=== PATIENT | male | born 1955 | race Caucasian/White ===

== ENCOUNTER 2016-04-17 18:38 | Emergency (ER) | payer OTHER ==
[~2016-04-17] VITALS: Ht 177.8 cm; Wt 65.8 kg
[2016-04-17] MEDS ORDERED: NS IV 1000 ML 1,000 ML IV ONE (18:52)
[2016-04-17] MEDS ORDERED: NS IV 1000 ML 1,000 ML ONE (18:54)
--- NOTE | 2016-04-17 19:00 | ED Syncope ---
General Stated Complaint: R SIDE FACE LAC Source of Information: Patient Exam Limitations: No Limitations (RIA PIERRE MD) History of Present Illness Time Seen by Provider: 18:45 Initial Comments Here with report of syncopal episode tonight. States he was cooking dinner and stood up quickly to stir his meat on the stove when he got dizzy and passed out. He hit his head on a metal stool and has a 5 cm laceration above the right eye involving the brow and upper eyelid. States he had a similar episode 10 years ago with standing up quickly. Denies nausea or vomiting. Has had some epigastric abdominal pain and states that has been related to stress at work. Apparently his job is cutting hours and he is fretting about that. States he feels like he has to have a bowel movement but can't. States that he has been more gassy today. Timing/Prior Episodes: Remote History, Single Episode Today Symptoms Prior to Episode: Injury, Lightheadedness Loss of Consciousness: Brief (Seconds) Current Symptoms: No Chest Pain, Dizziness Lightheadedness Pale Weakness ( RIA PIERRE MD) Allergies and Home Medications Allergies Coded Allergies: No Known Drug Allergies (Unverified , 04/17/16) Home Medications No Active Prescriptions or Reported Meds Constitutional: see HPINo chills, No fever EENTM: see HPI Respiratory: no symptoms reportedNo short of breath, No wheezing Cardiovascular: see HPINo edema, syncope Gastrointestinal: see HPI abdominal painNo nausea, No vomiting Genitourinary: no symptoms reported Musculoskeletal: no symptoms reported Skin: see HPI lesions Psychiatric/Neurological: See HPI (RIA PIERRE MD) All Other Systems Reviewed Negative Unless Noted: Yes (RIA PIERRE MD) Past Rcpkoga-Qocdsn-Dilgjj Hx Patient Social History Alcohol Use: Denies Use Recreational Drug Use: No Smoking Status: Current Everyday Smoker Type Used: Cigarettes Recent Foreign Travel: No Contact w/Someone Who Travel: No (RIA PIERRE MD) Surgeries HX Surgeries: No (RIA PIERRE MD) Respiratory Hx Respiratory Disorders: No (RIA PIERRE MD) Cardiovascular Hx Cardiac Disorders: No (RIA PIERRE MD) Neurological Hx Neurological Disorders: No (RIA PIERRE MD) Genitourinary Hx Genitourinary Disorders: No (RIA PIERRE MD) Gastrointestinal Hx Gastrointestinal Disorders: No (RIA PIERRE MD) Musculoskeletal Hx Musculoskeletal Disorders: Yes Musculoskeletal Disorders: Amputee (finger) (RIA PIERRE MD) Endocrine Hx Endocrine Disorders: No (RIA PIERRE MD) HEENT HX ENT Disorders: No (RIA PIERRE MD) Psychosocial Hx Psychiatric Problems: No (RIA PIERRE MD) Reviewed Nursing Assessment Reviewed/Agree w Nursing PMH: Yes (RIA PIERRE MD) Family Medical History Significant Family History: No Pertinent Family Hx (RIA PIERRE MD) Physical Exam Vital Signs Vital Sign - Last 12Hours 04/17/16 18:50 Temp 96.3 Pulse 83 Resp 18 B/P 100/67 Pulse Ox 100 (CARLOS HENRY APRN) Vital Signs Capillary Refill : (RIA PIERRE MD) General Appearance: No Apparent Distress WD/WN HEENT: PERRL/EOMI Pharynx Normal Other (right brow and upper eyelid laceration ) Neck: Full Range of Motion Normal Inspection Non Tender Cardiovascular: Regular Rate, Rhythm No Murmur Respiratory: Lungs Clear Normal Breath Sounds Gastrointestinal: Non Tender Soft Back: Normal Inspection No CVA Tenderness No Vertebral Tenderness Extremities: Non Tender No Calf Tenderness Neurologic/Psychiatric: Alert Oriented x3 No Motor/Sensory Deficits Normal Mood/Affect Cranial Nerves: Normal Hearing, Normal Speech, PERRL Coordination/Gait: Normal Gait Motor/Sensory: No Motor Deficit, No Sensory Deficit Skin: Warm/Dry Pallor Lymphatic: No Adenopathy (RIA PIERRE MD) Laceration Repair : Wound Location: Face Wound Length (cm): 5 Wound's Depth, Shape: sub Q Wound Explored: clean Irrigated w/ Saline (ccs): 110 Betadine Prep?: Yes Anesthesia: Lidocaine w/ Epi Volume Anesthetic (ccs): 3 Suture: Ethlion Suture Size: 5-0 Number of Sutures: 2 Layer Closure?: 1 Number Deep Layer Sutures: 0 Progress Area anesthetized with lidocaine with epinephrine totaling 3ml. Area scrubbed with chlorhexidine/saline solution. One simple interrupted suture was placed then one long continuous suture was placed. (CARLOS HENRY APRN) Progress/Results/Core Measures Results/Orders Lab Results Laboratory Tests Test 04/17/16 18:50 04/17/16 18:51 Range/Units Alanine Aminotransferase (ALT/SGPT) 13 0-55 U/L Albumin 4.3 3.2-4.5 G/DL Alkaline Phosphatase 84 40-136 U/L Anion Gap 15 H 5-14 MMOL/L Aspartate Amino Transf (AST/SGOT) 15 5-34 U/L BUN/Creatinine Ratio 15 Basophils # (Auto) 0.1 0.0-0.1 10^3/uL Basophils (%) (Auto) 1 0-10 % Blood Urea Nitrogen 15 7-18 MG/DL Calcium Level 9.2 8.5-10.1 MG/DL Carbon Dioxide Level 19 L 21-32 MMOL/L Chloride Level 103 98-107 MMOL/L Creatinine 1.00 0.60-1.30 MG/DL Eosinophils # (Auto) 0.3 0.0-0.3 10^3/uL Eosinophils (%) (Auto) 2 0-10 % Estimat Glomerular Filtration Rate > 60 Glucose Level 143 H 70-105 MG/DL Hematocrit 41 40-54 % Hemoglobin 14.7 13.3-17.7 G/DL Lymphocytes # (Auto) 3.0 1.0-4.0 X 10^3 Lymphocytes (%) (Auto) 27 12-44 % Mean Corpuscular Hemoglobin 31 25-34 PG Mean Corpuscular Hemoglobin Concent 36 32-36 G/DL Mean Corpuscular Volume 85 80-99 FL Mean Platelet Volume 10.6 H 7.4-10.4 FL Monocytes # (Auto) 1.1 H 0.0-1.0 X 10^3 Monocytes (%) (Auto) 10 0-12 % Neutrophils # (Auto) 6.7 1.8-7.8 X 10^3 Neutrophils (%) (Auto) 61 42-75 % Platelet Count 219 130-400 10^3/uL Potassium Level 3.4 L 3.6-5.0 MMOL/L Red Blood Count 4.82 4.35-5.85 10^6/uL Red Cell Distribution Width 13.6 10.0-14.5 % Sodium Level 137 135-145 MMOL/L Total Bilirubin 0.6 0.1-1.0 MG/DL Total Protein 6.6 6.4-8.2 G/DL Troponin I < 0.30 <0.30 NG/ML White Blood Count 11.1 H 4.3-11.0 10^3/uL Glucometer 145 H 70-110 MG/DL (CARLOS HENRY APRN) My Orders Orders-CARLOS HENRY APRN Lidocaine/Epi 1% 1:100,000 (Xylocaine /E (04/17/16 19:15) (CARLOS HENRY APRN) Medications Given in ED Current Medications Medications Dose Ordered Sig/Luiz Route Start Time Stop Time Status Last Admin Dose Admin Sodium Chloride 1,000 ml @ 0 mls/hr Q0M ONCE IV 04/17/16 18:52 04/17/16 18:54 DC 04/17/16 18:56 1,000 MLS/HR (CARLOS HENRY APRN) Vital Signs/I&O Vital Sign - Last 12Hours 04/17/16 18:50 Temp 96.3 Pulse 83 Resp 18 B/P 100/67 Pulse Ox 100 (CARLOS HENRY APRN) Progress Note : Progress Note Seen and evaluated. IV, labs, EKG and chest x-ray ordered. CT head and face ordered. Monitor patient. Tetanus updated. 2100: Wound closure by Carlos Henry APRN. No significant findings other than COPD. I did discuss with the patient about smoking cessation and COPD findings on chest x-ray. Also instructed him to follow-up with and seek primary care physician. Patient stated he will. Discharged home with return precautions. Patient verbalize understanding instructions and agreement with plan. (RIA PIERRE MD) ECG Initial ECG Impression Date: Apr 17, 2016 Initial ECG Impression Time: 19:04 Initial ECG Rate: 69 Initial ECG Rhythm: Normal Sinus Initial ECG Impression: Normal Initial ECG Comparisson: No Previous ECG Available Comment Sinus rhythm with normal axis. No numbness of ST elevation MS. No previous available for comparison. Interpreted by me. (RIA PIERRE MD) Diagnostic Imaging Diagonstic Imaging: CT Plain Films/CT/US/NM/MRI: abdomen, pelvis, head Comments NAME: FREDRICK LEIVA MED REC#: [id number] PT STATUS: REG ER : 1955 PHYSICIAN: RIA PIERRE MD ADMIT DATE: 04/17/16/ER Signed Date of Exam: 04/17/16 CT HEAD/MAXILLOFACIAL WO INDICATION: Fainted today, laceration above the right eye. COMPARISON STUDIES: None. FINDINGS: Noncontrast CT scan of the head demonstrates no mass effect, midline shift, hemorrhage or extra-axial fluid collections. Weathers-white matter differentiation is normal. The ventricles, cortical sulci and basilar cisterns appear normal. No foreign bodies are identified. No fractures are evident. No fluid is seen in the visualized portions of the paranasal sinuses and mastoid air cells. Noncontrast CT scan of the facial bones demonstrates no evidence of a fracture. The temporomandibular joints are normally seated. No fluid is seen in the paranasal sinuses. Nasal septum is deviated to the left. A small mucus retention cyst is seen in the right maxillary sinus. IMPRESSION: There are no acute findings to the head or facial bones. Dictated by: Dictated on workstation # [id number] Dict: 04/17/162033 Trans: 04/17/162040 [facility] [id number] Interpreted by: MERLE FIORE MD Electronically signed by:MERLE FIORE MD 04/17/162042 Diagonstic Imaging: Xray Plain Films/CT/US/NM/MRI: chest Comments NAME: FREDRICK LEIVA [employer] REC#: [id number] PT STATUS: REG ER : 1955 PHYSICIAN: RIA PIERRE MD ADMIT DATE: 04/17/16/ER Signed Date of Exam: 04/17/16 CHEST PA/LAT (2 VIEW) INDICATION: Syncope today FINDINGS: Frontal and lateral views of the chest demonstrate COPD changes. The heart size and vascularity are normal. There are no effusions. IMPRESSION: COPD. Dictated by: Dictated on workstation # [id number] Dict: 04/17/162027 Trans: 04/17/162040 [facility] [id number] Interpreted by: MERLE FIORE MD Electronically signed by:MERLE FIORE MD 04/17/162042 (RIA PIERRE MD) Departure Impression Impression: Primary Impression: Syncope Qualified Code: R55 - Syncope and collapse Additional Impression: Facial laceration Qualified Code: S01.81XA - Laceration without foreign body of other part of head, initial encounter Disposition: 01 HOME, SELF-CARE Condition: Improved Departure-Patient Inst. Decision time for Depature: 21:08 (RIA PIERRE MD) Referrals: NO,LOCAL PHYSICIAN (PCP/Family) Primary Care Physician Patient Instructions: Laceration Repair With Stitches (DC), Syncope (Fainting) (DC) Add. Discharge Instructions: You May take ibuprofen or Tylenol as needed for fever or pain control. Drink plenty of fluids. It is important that you transition from lying or sitting to standing slowly to prevent dizziness or passing out. If you feel dizzy when standing, it is important that you sit back down or lay down and get your feet up quickly as this will prevent passing out. Follow-up with your doctor for recheck and further evaluation. Seek primary care physician as discussed. You should consider stopping smoking as you have changes noted on your chest x-ray indicating chronic lung injury from smoking. Return for worse pain, fever, vomiting, weakness, breathing problems or other concerns as needed. Use antibiotic ointment over the wound once or twice daily for the next 3 or 4 days and then as needed. You may cover the wound with a dressing as needed to protect wound. You may use ice packs to the affected area as needed to help the swelling or pain. Stitches out in 5-6 days. Scripts No Active Prescriptions or Reported Meds RIA PIERRE MD Apr 17, 2016 19:00 CARLOS HENRY APRN Apr 17, 2016 20:24
[2016-04-17] MEDS ORDERED: TETANUS,DIPTH,PERTUSS P/F (BOOSTRIX) 0.5 ML VIAL IM STA (19:01)
[2016-04-17 19:02] LABS: BASOPHILS # (AUTO) 0.1 10^3/uL (0.0-0.1); BASOPHILS % (AUTO) 1 % (0-10); EOSINOPHILS # (AUTO) 0.3 10^3/uL (0.0-0.3); EOSINOPHILS % (AUTO) 2 % (0-10); LYMPHOCYTES % (AUTO) 27 % (12-44); MEAN CORPUSCULAR HEMOGLOBIN 31 PG (25-34); MEAN CORPUSCULAR HGB CONC 36 G/DL (32-36); MEAN CORPUSCULAR VOLUME 85 FL (80-99); MEAN PLATELET VOLUME 10.6 FL (7.4-10.4); MONOCYTES # (AUTO) 1.1 X 10^3 (0.0-1.0); MONOCYTES % (AUTO) 10 % (0-12); NEUTROPHILS # (AUTO) 6.7 X 10^3 (1.8-7.8); NEUTROPHILS % (AUTO) 61 % (42-75); PLATELET COUNT 219 10^3/uL (130-400); RED BLOOD COUNT 4.82 10^6/uL (4.35-5.85); RED CELL DISTRIBUTION WIDTH 13.6 % (10.0-14.5); WHITE BLOOD COUNT 11.1 10^3/uL (4.3-11.0)
[2016-04-17] MEDS ORDERED: LIDOCAINE/EPI 1%-1:100,000 (XYLOCAINE) 20ML INJ ONE (19:15)
[2016-04-17 19:20] LABS: ALANINE AMINOTRANSFERASE 13 U/L (0-55); ALBUMIN 4.3 G/DL (3.2-4.5); ANION GAP 15 MMOL/L (5-14); ASPARTATE AMINO TRANSFERASE 15 U/L (5-34); BILIRUBIN,TOTAL 0.6 MG/DL (0.1-1.0); BLOOD UREA NITROGEN 15 MG/DL (7-18); BUN/CREATININE RATIO 15; CALCIUM 9.2 MG/DL (8.5-10.1); CARBON DIOXIDE 19 MMOL/L (21-32); CHLORIDE 103 MMOL/L (98-107); GFR ESTIMATED > 60; GLUCOSE 143 MG/DL (70-105); POTASSIUM 3.4 MMOL/L (3.6-5.0); SODIUM 137 MMOL/L (135-145); TOTAL PROTEIN 6.6 G/DL (6.4-8.2)
[2016-04-17 19:26] LABS: TROPONIN I < 0.30 NG/ML (<0.30)
--- NOTE | 2016-04-17 20:30 | Diagnostic Imaging Report ---
INDICATION: Syncope today FINDINGS: Frontal and lateral views of the chest demonstrate COPD changes. The heart size and vascularity are normal. There are no effusions. IMPRESSION: COPD. Dictated by: Dictated on workstation # [id number]
--- NOTE | 2016-04-17 20:39 | Diagnostic Imaging Report ---
INDICATION: Fainted today, laceration above the right eye. COMPARISON STUDIES: None. FINDINGS: Noncontrast CT scan of the head demonstrates no mass effect, midline shift, hemorrhage or extra-axial fluid collections. Weathers-white matter differentiation is normal. The ventricles, cortical sulci and basilar cisterns appear normal. No foreign bodies are identified. No fractures are evident. No fluid is seen in the visualized portions of the paranasal sinuses and mastoid air cells. Noncontrast CT scan of the facial bones demonstrates no evidence of a fracture. The temporomandibular joints are normally seated. No fluid is seen in the paranasal sinuses. Nasal septum is deviated to the left. A small mucus retention cyst is seen in the right maxillary sinus. IMPRESSION: There are no acute findings to the head or facial bones. Dictated by: Dictated on workstation # [id number]
[2016-04-17 21:47] VITALS: BP 107/71
== END 2016-04-17 21:12 | disposition home or self-care (01) ==
LOC: EDUNIT# 18:38 → ER 18:39
DX: S01.111A Laceration without foreign body of right eyelid and periocular area, initial encounter (principal); Z23 Encounter for immunization; R55 Syncope and collapse; J44.9 Chronic obstructive pulmonary disease, unspecified; F17.210 Nicotine dependence, cigarettes, uncomplicated; W18.09XA Striking against other object with subsequent fall, initial encounter; Y92.010 Kitchen of single-family (private) house as the place of occurrence of the external cause; Y99.8 Other external cause status
CPT/HCPCS: 36415; 70450; 70486; 71020; 80053; 82962; 84484; 85025; 90471; 90715; 93005; 96360

== ENCOUNTER 2016-04-23 09:22 | Emergency (ER) | payer OTHER ==
[~2016-04-23] VITALS: Ht 177.8 cm; Wt 65.8 kg
--- OUTSIDE RECORDS SUMMARY | 2016-04-23 09:30 | XMS REPORT | Continuity of Care Document ---
Author Author [facility] Organization [facility] Address Unknown Phone Unavailable Care Team Providers Care Photo Print Specialist Name Role Phone NO, LOCAL PHYSICIAN PCP Unavailable Insurance Providers Payer Name Policy Number Subscriber Name Relationship Unknown Advance Directives Directive Response Recorded Date/Time Advance Directives Yes 04/17/16 6:50pm Resuscitation Status Full Code 04/17/16 6:50pm Chief Complaint and Reason for Visit Chief Complaint Dizziness/Syncope Reason for Visit Syncope Facial laceration Problems Active Problems Medical Problem Onset Date Status Facial laceration Unknown Acute Syncope Unknown Acute Medications No known medications. Social History Social History Problem Response Recorded Date/Time Alcohol Use Denies Use 04/17/2016 7:00pm Recreational Drug Use No 04/17/2016 7:00pm Recent Foreign Travel No 04/17/2016 6:50pm Recent Infectious Disease Exposure No 04/17/2016 6:50pm Hospitalization with Isolation Denies 04/17/2016 6:50pm Smoking Status Current Everyday Smoker 04/17/2016 7:00pm Type Used Cigarettes 04/17/2016 7:00pm Hospitalization with Isolation Denies 04/17/2016 6:50pm Query Response Start Date Stop Date Smoking Status Current Everyday Smoker Hospital Discharge Instructions No hospital discharge instructions. Plan of Care Discharge Date 04/17/16 9:12pm Disposition 01 HOME, SELF-CARE Condition at Discharge Improved Instructions/Education Provided Laceration Repair With Stitches (DC) Syncope (Fainting) (DC) Prescriptions See Medication Section Referrals NO,LOCAL PHYSICIAN - Primary Care Physician Additional Instructions/Education You May take ibuprofen or Tylenol as needed for fever or pain control. Drink plenty of fluids. It is important that you transition from lying or sitting to standing slowly to prevent dizziness or passing out. If you feel dizzy when standing, it is important that you sit back down or lay down and get your feet up quickly as this will prevent passing out. Follow-up with your doctor for recheck and further evaluation. Seek primary care physician as discussed. You should consider stopping smoking as you have changes noted on your chest x-ray indicating chronic lung injury from smoking. Return for worse pain, fever, vomiting, weakness, breathing problems or other concerns as needed. Use antibiotic ointment over the wound once or twice daily for the next 3 or 4 days and then as needed. You may cover the wound with a dressing as needed to protect wound. You may use ice packs to the affected area as needed to help the swelling or pain. Stitches out in 5-6 days. Functional Status Query Response Date Recorded Patient Orientation Person Place Time Situation Normal For Age April 17, 2016 6:50pm Comprehension Ability Understands Concepts April 17, 2016 6:50pm Allergies, Adverse Reactions, Alerts No known allergies. Immunizations Name Given Type DTaP-Tetanus, Dipth, Pertuss P/F (Boostrix) 04/17/16 Administered Vital Signs Acute Vital Signs Vital Response Date/Time Temperature (Fahrenheit) 96.3 degrees F (97.6 - 99.5) 04/17/2016 6:50pm Temperature (Calculated Celsius) 35.15637 degrees C (36.4 - 37.5) 04/17/2016 6:50pm Pulse Rate (adult) 83 bpm (60 - 90) 04/17/2016 6:50pm Respiratory Rate 18 bpm (12 - 24) 04/17/2016 6:50pm O2 Sat by Pulse Oximetry 100 % (88 - 100) 04/17/2016 6:50pm Blood Pressure 100/67 mm Hg 04/17/2016 6:50pm Blood Pressure Mean 78 mm Hg 04/17/2016 6:50pm Pain Numeric Pain Scale 0-No Pain 04/17/2016 6:50pm Height (Feet) 5 feet 04/17/2016 6:50pm Height (Inches) 10 inches 04/17/2016 6:50pm Height (Calculated Centimeters) 177.849807 cm 04/17/2016 6:50pm Weight (Pounds) 145 pounds 04/17/2016 6:50pm Weight (Calculated Kilograms) 65.623837 kilograms 04/17/2016 6:50pm Capillary Refill Capillary Refill Less Than 3 Seconds 04/17/2016 6:50pm Height 5 ft 10 in Weight 145 lb Body Mass Index 20.8 kg/m^2 Results Laboratory Results Test Name Result Units Flags Reference Collection Date/Time Result Date/ Time Comments White Blood Count 11.1 10^3/uL H 4.3-11.0 04/17/2016 6:50pm 04/17/2016 7: 10pm Red Blood Count 4.82 10^6/uL 4.35-5.85 04/17/2016 6:50pm 04/17/2016 7: 10pm Hemoglobin 14.7 G/DL 13.3-17.7 04/17/2016 6:50pm 04/17/2016 7:10pm Hematocrit 41 % 40-54 04/17/2016 6:50pm 04/17/2016 7:10pm Mean Corpuscular Volume 85 FL 80-99 04/17/2016 6:50pm 04/17/2016 7: 10pm Mean Corpuscular Hemoglobin 31 PG 25-34 04/17/2016 6:50pm 04/17/2016 7: 10pm Mean Corpuscular Hemoglobin Concent 36 G/DL 32-36 04/17/2016 6:50pm 05/2016 7:10pm Red Cell Distribution Width 13.6 % 10.0-14.5 04/17/2016 6:50pm 2016 7:10pm Platelet Count 219 10^3/uL 130-400 04/17/2016 6:50pm 04/17/2016 7:10pm Mean Platelet Volume 10.6 FL H 7.4-10.4 04/17/2016 6:50pm 04/17/2016 7: 10pm Neutrophils (%) (Auto) 61 % 42-75 04/17/2016 6:50pm 04/17/2016 7:10pm Lymphocytes (%) (Auto) 27 % 12-44 04/17/2016 6:50pm 04/17/2016 7:10pm Monocytes (%) (Auto) 10 % 0-12 04/17/2016 6:50pm 04/17/2016 7:10pm Eosinophils (%) (Auto) 2 % 0-10 04/17/2016 6:50pm 04/17/2016 7:10pm Basophils (%) (Auto) 1 % 0-10 04/17/2016 6:50pm 04/17/2016 7:10pm Neutrophils # (Auto) 6.7 X 10^3 1.8-7.8 04/17/2016 6:50pm 04/17/2016 7: 10pm Lymphocytes # (Auto) 3.0 X 10^3 1.0-4.0 04/17/2016 6:50pm 04/17/2016 7: 10pm Monocytes # (Auto) 1.1 X 10^3 H 0.0-1.0 04/17/2016 6:50pm 04/17/2016 7: 10pm Eosinophils # (Auto) 0.3 10^3/uL 0.0-0.3 04/17/2016 6:50pm 04/17/2016 7 :10pm Basophils # (Auto) 0.1 10^3/uL 0.0-0.1 04/17/2016 6:50pm 04/17/2016 7: 10pm Sodium Level 137 MMOL/L 135-145 04/17/2016 6:50pm 04/17/2016 7:23pm Potassium Level 3.4 MMOL/L L 3.6-5.0 04/17/2016 6:50pm 04/17/2016 7:23pm Chloride Level 103 MMOL/L 98-107 04/17/2016 6:50pm 04/17/2016 7:23pm Carbon Dioxide Level 19 MMOL/L L 21-32 04/17/2016 6:50pm 04/17/2016 7: 23pm Anion Gap 15 MMOL/L H 5-14 04/17/2016 6:50pm 04/17/2016 7:23pm Blood Urea Nitrogen 15 MG/DL 7-18 04/17/2016 6:50pm 04/17/2016 7:23pm Creatinine 1.00 MG/DL 0.60-1.30 04/17/2016 6:50pm 04/17/2016 7:23pm BUN/Creatinine Ratio 15 04/17/2016 6:50pm 04/17/2016 7:23pm Estimat Glomerular Filtration Rate > 60 04/17/2016 6:50pm 2016 7:23pm GFR INTERPRETIVE DATA UNITS FOR ESTIMATED GFR (eGFR): mL/min/1.73 M2 REFERENCE RANGE FOR ESTIMATED GFR (eGFR) eGFR NORMAL eGFR >60 MODERATELY DECREASED eGFR 30-59 SEVERLY DECREASED eGFR 15-29 KIDNEY FAILURE <15 (OR DIALYSIS) Glucose Level 143 MG/DL H 70-105 04/17/2016 6:50pm 04/17/2016 7:23pm Glucometer 145 MG/DL H 70-110 04/17/2016 6:51pm 04/17/2016 7:00pm Calcium Level 9.2 MG/DL 8.5-10.1 04/17/2016 6:50pm 04/17/2016 7:23pm Total Bilirubin 0.6 MG/DL 0.1-1.0 04/17/2016 6:50pm 04/17/2016 7:23pm Alkaline Phosphatase 84 U/L 40-136 04/17/2016 6:50pm 04/17/2016 7:23pm Aspartate Amino Transf (AST/SGOT) 15 U/L 5-34 04/17/2016 6:50pm 2016 7:23pm Alanine Aminotransferase (ALT/SGPT) 13 U/L 0-55 04/17/2016 6:50pm 04/17 7:23pm Troponin I < 0.30 NG/ML <0.30 04/17/2016 6:50pm 04/17/2016 7:26pm Total Protein 6.6 G/DL 6.4-8.2 04/17/2016 6:50pm 04/17/2016 7:23pm Albumin 4.3 G/DL 3.2-4.5 04/17/2016 6:50pm 04/17/2016 7:23pm Procedures Procedure Status Date Provider(s) Tracing only of electrocardiogram Active 04/17/16 RIA PIERRE MD Encounters Encounter Location Arrival/Admit Date Discharge/Depart Date Attending Provider Departed Emergency Room [facility] 04/17/16 6:39pm 04/17 9:12pm RIA PIERRE MD Recent Diagnosis
[2016-04-23 09:44] VITALS: BP 130/80
== END 2016-04-23 09:44 | disposition home or self-care (01) ==
LOC: EDUNIT# 09:22 → ER 09:26
DX: S01.111D Laceration without foreign body of right eyelid and periocular area, subsequent encounter (principal)

== ENCOUNTER 2020-02-13 14:30 | Emergency (ER) | payer MEDICARE ==
[~2020-02-13] VITALS: Ht 177 cm; Wt 65.0 kg
--- NOTE | 2020-02-13 14:58 | ED Cough/URI ---
General Chief Complaint: Respiratory Problems Stated Complaint: CHILLS,SOB Nursing Triage Note: ARRIVED VIA AMB TO ROOM 10 WITH COMPLAINTS OF SOA X1 WEEK. SCARED HE HAS CANCER. STATES HE IS COUGHING UP GREEN PHLEM. Sepsis Screen: No Definite Risk Source: patient Exam Limitations: no limitations History of Present Illness Date Seen by Provider: Feb 13, 2020 Time Seen by Provider: 14:57 Initial Comments To ER with reports of shortness of breath for 1 week with a cough that is productive of green sputum along with general fatigue, lower abdominal discomfort, poor appetite. He had fevers at the onset of this. He smokes 1 pack of cigarettes per day for many years and is concerned he has cancer. Does not have a family physician and has not seen a physician in 30 years. Timing/Duration: constant Severity/Quality: moderate Associated Symptoms: cough, shortness of breath Allergies and Home Medications Allergies Coded Allergies: No Known Drug Allergies (Unverified , 04/17/16) Home Medications No Active Prescriptions or Reported Meds Patient Home Medication List Home Medication List Reviewed: Yes Review of Systems Review of Systems Constitutional: see HPI, malaise, weakness EENTM: see HPI Respiratory: see HPI, cough, short of breath Cardiovascular: no symptoms reported Genitourinary: no symptoms reported Musculoskeletal: no symptoms reported Skin: no symptoms reported Psychiatric/Neurological: No Symptoms Reported Hematologic/Lymphatic: No Symptoms Reported Immunological/Allergic: no symptoms reported Past Ezqbict-Lwhxfi-Eqyiec Hx Patient Social History Alcohol Use: Denies Use Recreational Drug Use: Yes (POT) Smoking Status: Current Everyday Smoker Type Used: Cigarettes Recent Foreign Travel: No Contact w/Someone Who Travel: No Recent Infectious Disease Expo: No Immunizations Up To Date Tetanus Booster (TDap): More than 5yrs Past Medical History Surgeries: No Respiratory: No Cardiac: No Neurological: No Gastrointestinal: No Musculoskeletal: Yes Amputee Endocrine: No Psychosocial: No Family Medical History No Pertinent Family Hx Physical Exam Vital Signs - First Documented 02/13/20 14:40 Temp 37.0 Pulse 98 Resp 16 B/P (MAP) 134/95 (108) Pulse Ox 99 O2 Delivery Room Air Capillary Refill : Less Than 3 Seconds Height: 5'10" Weight: 145lbs. oz. [id number]; 20.00 BMI Method:Stated General Appearance: WD/WN, no apparent distress, thin, other (Very pleasant) Eyes: Bilateral Eye Normal Inspection, Bilateral Eye PERRL, Bilateral Eye EOMI Respiratory: no respiratory distress, no accessory muscle use, decreased breath sounds Cardiovascular: regular rate, rhythm, no murmur Gastrointestinal: normal bowel sounds, non tender, soft Extremities: normal range of motion, non-tender Neurologic/Psychiatric: alert, normal mood/affect, oriented x 3 Skin: normal color, warm/dry Procedures/Interventions Suture Size: 5-0 Progress/Results/Core Measures Suspected Sepsis Recent Fever Within 48 Hours: No Infection Criteria Present: Suspected New Infection New/Unexplained Altered Menta: No Sepsis Screen: No Definite Risk SIRS Temperature: Pulse: 98 Respiratory Rate: 16 Laboratory Tests 02/13/20 14:50: White Blood Count 4.2L Blood Pressure 134 /95 Mean: 108 Laboratory Tests 02/13/20 14:50: Creatinine 1.09, Platelet Count 96L, Total Bilirubin 0.6 Results/Orders Lab Results Laboratory Tests Test 02/13/20 14:50 Range/Units White Blood Count 4.2 L 4.3-11.0 10^3/uL Red Blood Count 5.28 4.30-5.52 10^6/uL Hemoglobin 15.6 13.3-17.7 g/dL Hematocrit 46 40-54 % Mean Corpuscular Volume 86 80-99 fL Mean Corpuscular Hemoglobin 30 25-34 pg Mean Corpuscular Hemoglobin Concent 34 32-36 g/dL Red Cell Distribution Width 13.2 10.0-14.5 % Platelet Count 96 L 130-400 10^3/uL Mean Platelet Volume 11.8 9.0-12.2 fL Immature Granulocyte % (Auto) 0 % Neutrophils (%) (Auto) 41 L 42-75 % Lymphocytes (%) (Auto) 40 12-44 % Monocytes (%) (Auto) 17 H 0-12 % Eosinophils (%) (Auto) 2 0-10 % Basophils (%) (Auto) 0 0-10 % Neutrophils # (Auto) 1.7 L 1.8-7.8 10^3/uL Lymphocytes # (Auto) 1.7 1.0-4.0 10^3/uL Monocytes # (Auto) 0.7 0.0-1.0 10^3/uL Eosinophils # (Auto) 0.1 0.0-0.3 10^3/uL Basophils # (Auto) 0.0 0.0-0.1 10^3/uL Immature Granulocyte # (Auto) 0.0 0.0-0.1 10^3/uL D-Dimer 0.37 0.00-0.49 UG/ML Sodium Level 134 L 135-145 MMOL/L Potassium Level 3.8 3.6-5.0 MMOL/L Chloride Level 100 98-107 MMOL/L Carbon Dioxide Level 24 21-32 MMOL/L Anion Gap 10 5-14 MMOL/L Blood Urea Nitrogen 14 7-18 MG/DL Creatinine 1.09 0.60-1.30 MG/DL Estimat Glomerular Filtration Rate > 60 BUN/Creatinine Ratio 13 Glucose Level 128 H 70-105 MG/DL Calcium Level 8.6 8.5-10.1 MG/DL Corrected Calcium 8.4 L 8.5-10.1 MG/DL Total Bilirubin 0.6 0.1-1.0 MG/DL Aspartate Amino Transf (AST/SGOT) 64 H 5-34 U/L Alanine Aminotransferase (ALT/SGPT) 138 H 0-55 U/L Alkaline Phosphatase 94 40-136 U/L Total Protein 7.1 6.4-8.2 GM/DL Albumin 4.2 3.2-4.5 GM/DL Procalcitonin 0.03 <0.10 NG/ML My Orders Orders - CARLOS GOLDBERG TELEPHONE SERVICE REPRESENTATIVE Cbc With Automated Diff (02/13/20 14:54) Comprehensive Metabolic Panel (02/13/20 14:54) Fibrin Degradation Products (02/13/20 14:54) Chest 1 View, Ap/Pa Only (02/13/20 14:54) Ed Iv/Invasive Line Start (02/13/20 14:54) Procalcitonin (Pct) (02/13/20 14:54) Coronavirus Sars-Cov-2 So 2018 (02/13/20 14:55) Ct Chest/Abdomen/Pelvis W (02/13/20 15:20) Iohexol Injection (Omnipaque 350 Mg/Ml 1 (02/13/20 15:45) Received Contrast (Hold Metformin- Contr (02/13/20 15:45) Ns (Ivpb) (Sodium Chloride 0.9% Ivpb Bag (02/13/20 15:45) Medications Given in ED Current Medications Medications Dose Ordered Sig/Luiz Route Start Time Stop Time Status Last Admin Dose Admin Iohexol 100 ml ONCE ONCE IV 02/13/20 15:45 02/13/20 15:46 DC 02/13/20 16:37 100 ML Sodium Chloride 100 ml ONCE ONCE IV 02/13/20 15:45 02/13/20 15:46 DC 02/13/20 16:38 100 ML Vital Signs/I&O 02/13/20 14:40 Temp 37.0 Pulse 98 Resp 16 B/P (MAP) 134/95 (108) Pulse Ox 99 O2 Delivery Room Air Capillary Refill : Less Than 3 Seconds Blood Pressure Mean: 108 Departure Communication (Admissions) Oxygen saturation 97% room air. Heart rate 65. Impression Primary Impression: Viral syndrome Disposition: HOME, SELF-CARE Condition: Stable Departure-Patient Inst. Decision time for Depature: 17:06 Referrals: BRUNO BERGMAN BETHANY N MD NO,LOCAL PHYSICIAN (PCP) Primary Care Physician Patient Instructions: Viral Syndrome (DC) Add. Discharge Instructions: 1. Follow-up with your doctor next week. Go home and stay quarantined until all your Covid test comes back tomorrow. Emergency department focuses on treating and ruling out life-threatening diseases. Whenever possible, a diagnosis is given. However, most patients are given an impression based on their history, physical exam, and workup during your brief time in the ER. Information about probable diagnosis and other educational material has been provided. Please take the time to read and understand this information. It is very important that you follow up with a physician as discussed during the visit today. Failure to adhere to your follow-up instructions may lead to severe disability, injury, or so please make sure to keep your appointments or obtain one as requested. All discharge instructions reviewed with patient and/or family. Voiced understanding. Scripts No Active Prescriptions or Reported Meds CARLOS GOLDBERG TELEPHONE SERVICE REPRESENTATIVE Feb 13, 2020 14:57
[2020-02-13 15:02] LABS: BASOPHILS % (AUTO) 0 % (0-10); HEMATOCRIT 46 % (40-54); MEAN CORPUSCULAR VOLUME 86 fL (80-99)
[2020-02-13 15:03] LABS: EOSINOPHILS # (AUTO) 0.1 10^3/uL (0.0-0.3); EOSINOPHILS % (AUTO) 2 % (0-10); HEMOGLOBIN 15.6 g/dL (13.3-17.7); LYMPHOCYTES # (AUTO) 1.7 10^3/uL (1.0-4.0); LYMPHOCYTES % (AUTO) 40 % (12-44); MEAN CORPUSCULAR HEMOGLOBIN 30 pg (25-34); MEAN CORPUSCULAR HGB CONC 34 g/dL (32-36); MEAN PLATELET VOLUME 11.8 fL (9.0-12.2); MONOCYTES # (AUTO) 0.7 10^3/uL (0.0-1.0); MONOCYTES % (AUTO) 17 % (0-12); NEUTROPHILS # (AUTO) 1.7 10^3/uL (1.8-7.8); NEUTROPHILS % (AUTO) 41 % (42-75); PLATELET COUNT 96 10^3/uL (130-400); WHITE BLOOD COUNT 4.2 10^3/uL (4.3-11.0)
[2020-02-13 15:10] LABS: ALBUMIN 4.2 GM/DL (3.2-4.5); CHLORIDE 100 MMOL/L (98-107); POTASSIUM 3.8 MMOL/L (3.6-5.0); SODIUM 134 MMOL/L (135-145)
[2020-02-13 15:11] LABS: CALCIUM 8.6 MG/DL (8.5-10.1)
[2020-02-13 15:12] LABS: GLUCOSE 128 MG/DL (70-105); TOTAL PROTEIN 7.1 GM/DL (6.4-8.2)
[2020-02-13 15:13] LABS: CARBON DIOXIDE 24 MMOL/L (21-32)
[2020-02-13 15:14] LABS: BILIRUBIN,TOTAL 0.6 MG/DL (0.1-1.0)
[2020-02-13 15:16] LABS: ALKALINE PHOSPHATASE 94 U/L (40-136); CREATININE SERUM 1.09 MG/DL (0.60-1.30); GFR ESTIMATED > 60
[2020-02-13 15:17] LABS: BUN/CREATININE RATIO 13
[2020-02-13 15:19] LABS: ALANINE AMINOTRANSFERASE 138 U/L (0-55)
[2020-02-13] MEDS ORDERED: NS 100 ML (IVPB) BAG IV ONE (15:45)
[2020-02-13] MEDS ORDERED: HOLD METFORMIN - RECEIVED CONTRAST 20 ML VIAL IV SCH (15:45)
[2020-02-13] MEDS ORDERED: IOHEXOL 350 MG/ML 100 ML (OMNIPAQUE 350) VIAL IV ONE (15:45)
--- NOTE | 2020-02-13 15:46 | Diagnostic Imaging Report ---
INDICATION: Shortness of breath. Cough. COMPARISON: 04/17/2016. FINDINGS: Obstructive pulmonary disease is again noted with flattening of the diaphragm. No acute infiltrates have developed. Bilateral apical pleural scarring is present. The heart is not enlarged. No hilar adenopathy. No bony abnormalities. IMPRESSION: Chronic obstructive pulmonary disease without acute change when compared with previous exam. Dictated by: Dictated on workstation # [id number]
--- NOTE | 2020-02-13 17:03 | Diagnostic Imaging Report ---
EXAMINATION: CT Chest, Abdomen and Pelvis with intravenous contrast. TECHNIQUE: Multiple contiguous axial images were obtained through the chest, abdomen and pelvis after the uneventful administration of intravenous contrast. All CT scans use one or more of the following dose optimizing techniques: automated exposure control, MA and/or KvP adjustment based on a patient size and exam type, or iterative reconstruction. HISTORY: Shortness of breath, abdominal pain COMPARISON: None available. FINDINGS: There is an area of groundglass in the right lower lobe. Lungs are emphysematous. No pleural effusion. No pneumothorax. No suspicious nodules. There is no axillary or supraclavicular lymphadenopathy. There is no mediastinal lymphadenopathy. Heart size is normal. There are no coronary artery calcifications. No pericardial effusion. Aorta is normal in caliber. The liver is normal without focal lesion. There is no biliary ductal dilation. Gallbladder is normal. Pancreas is normal. Spleen is normal. Adrenal glands are normal. The kidneys are normal. There is no hydronephrosis. Urinary bladder is normal. Visualized bowel is normal in caliber without obstruction or inflammation. No free fluid or air. No abdominal or pelvic lymphadenopathy. Aorta is normal in caliber without aneurysm. There are no suspicious osseus lesions. IMPRESSION: 1. Areas of groundglass in the right lower lobe concerning for a viral infection such as COVID-19. Three-month follow-up is recommended to ensure resolution. 2. No acute abnormality in the abdomen or pelvis. Dictated by: Dictated on workstation # [id number]
[2020-02-13] MEDS ORDERED: RX-ONDANSETRON 4 MG ODT (ZOFRAN) PPK #4 PO STA (17:13)
[2020-02-13 17:20] VITALS: BP 113/72
--- NOTE | 2020-02-14 10:31 | NUR ---
Notified patient of positive COVID test. He reports being sick for 2 weeks and feeling a worsening of symptoms. I encouraged him to call his PCP.
== END 2020-02-13 17:20 | disposition home or self-care (01) ==
LOC: EDUNIT# 14:30 → ER 14:31
DX: U07.1 COVID-19 (principal); F17.210 Nicotine dependence, cigarettes, uncomplicated
CPT/HCPCS: 71045; 71260; 74177; 80053; 84145; 85025; 85379; U0002; 36415; 87635